=== PATIENT | female | born 1955 | race Caucasian/White ===

== ENCOUNTER → 2017-06-14 | Outpatient (CLI) | payer BC ==
--- NOTE | 2017-06-14 12:43 | NM ---
EXAMINATION TYPE: NM bone 3 phase DATE OF EXAM: 06/14/2017 COMPARISON: NONE HISTORY: Right kneecap pain Triple phase bone scintigraphy was performed following the injection of25.6 mCi Tc 99m MDP. Immediat e images and 3.5 hours post injection images acquired. FINDINGS: There is slight increased flow to the right knee. There is increased soft tissue uptake on blood pool images. Delayed images demonstrates abnormal uptake involving the medial femur and tibia very intense uptake. Abnormal uptake and delayed imaging within the left knee is suggestive of arthritic change. IMPRESSION: Positive triple phase bone scan involving the right knee. Differential diagnosis would still include severe arthritis. Infectious etiology not excluded. Correlate with x-ray or MRI as clinically warrant ed.
== END | disposition home or self-care (01) ==
LOC: RADNMMAIN 07:13
PROVIDERS: ATTEND Orthopaedic Surgery
DX: M25.861 Other specified joint disorders, right knee (principal)
CPT/HCPCS: 78315; A9503